=== PATIENT | male | born 1970 | race Caucasian/White ===

== ENCOUNTER 2017-05-13 10:00 | Emergency (ER) | payer SELFPAY ==
[~2017-05-13] VITALS: Ht 185.4 cm; Wt 184.2 kg
[2017-05-13 11:06] VITALS: BP 136/77
== END 2017-05-13 11:06 | disposition home or self-care (01) ==
LOC: ED 10:00
DX: M25.562 Pain in left knee (principal); R03.0 Elevated blood-pressure reading, without diagnosis of hypertension; Z88.0 Allergy status to penicillin